=== PATIENT | female | born 1955 | race Two or more races ===

== ENCOUNTER 2020-12-27 17:48 | Inpatient (IN) | payer OTHER ==
[~2020-12-27] VITALS: Ht 157.5 cm; Wt 77.1 kg
[2020-12-30] MEDS ORDERED: OMEPRAZOLE40 MG (10:57)
[2020-12-30] MEDS ORDERED: CALCIUM 600 MG1 EAC3 (10:59)
[2020-12-30] MEDS ORDERED: CIPROFLOXACIN500 MG (11:00)
[2020-12-30] MEDS ORDERED: NABUMETONE750 MG (11:00)
[2021-01-13] MEDS ORDERED: HYOSCYAMINE0.125 M1 SL (09:08)
[2021-01-13] MEDS ORDERED: INTESTINEX680 M1 PO (09:08)
[2021-01-13] MEDS ORDERED: PROTONIX40 MG PO (09:09)
[2021-01-13] MEDS ORDERED: AMOX1TAB5 PO (09:09)
== END 2021-01-13 10:43 | disposition home or self-care (01) | DRG 392 ==
LOC: ER 17:48 → SURG 23:12
PROVIDERS: ADMIT Surgery; ATTEND Surgery
PROC: 02HV33Z Insertion of Infusion Device into Superior Vena Cava, Percutaneous Approach (ICD-10-PCS; 2020-12-28)
PROC: BW211ZZ Computerized Tomography (CT Scan) of Abdomen and Pelvis using Low Osmolar Contrast (ICD-10-PCS; 2020-12-28)
PROC: BW2110Z Computerized Tomography (CT Scan) of Abdomen and Pelvis using Low Osmolar Contrast, Unenhanced and Enhanced (ICD-10-PCS; 2021-01-01)
PROC: 0W9J30Z Drainage of Pelvic Cavity with Drainage Device, Percutaneous Approach (ICD-10-PCS; principal; 2021-01-04)
DX: K57.20 Diverticulitis of large intestine with perforation and abscess without bleeding (principal)

== ENCOUNTER 2021-03-11 05:55 | Day surgery (SDC) | payer OTHER ==
[~2021-03-11 05:55] MED LIST: AMOX1TAB5 PO; CALCIUM 600 MG1 EAC3; CIPROFLOXACIN500 MG; HYOSCYAMINE0.125 M1 SL; INTESTINEX680 M1 PO; NABUMETONE750 MG; OMEPRAZOLE40 MG; PROTONIX40 MG PO
== END 2021-03-11 10:15 | disposition home or self-care (01) ==
LOC: AMB-ENDOS 05:55
PROVIDERS: ATTEND Surgery
DX: D12.2 Benign neoplasm of ascending colon (principal); D17.5 Benign lipomatous neoplasm of intra-abdominal organs

== ENCOUNTER 2021-05-12 06:20 | Inpatient (IN) | payer OTHER ==
[~2021-05-12] VITALS: Ht 157.5 cm; Wt 72.6 kg
[2021-05-12] MEDS ORDERED: PEPCID AC20 MG (06:29)
[2021-05-12] MEDS ORDERED: GLYCOPYRROLATE2 MG (06:29)
[2021-05-12] MEDS ORDERED: MOXIFLOXACIN HCL1 GM (06:30)
--- NOTE | 2021-05-12 06:36 | NUR ---
SE RECIBE PTE ALERTA Y ORIENTADA POR WALLY. PTE REFIERE PRESENTAR DOLOR EN AREA DEL HIPOGASTRIO DESDE HACE CUATRO OSORIO Y INDICA QUE PADECE DE DIVERTICULITIS.
--- NOTE | 2021-05-12 08:44 | NUR ---
SE ORIENTA A PACIENTE SOBRE TRATAMIENTO ORDENADO POR DR. FALCON, LA MISMA VERBALIZA ENTENDER. SE COLECTAN MUESTRAS DE LABORATORIOS, SE ADMINISTRAN MEDICAMENTOS CORRESPONDIENTES Y SE COLOCA VENOPUNCION PATENTE, PETRA DE EIRTEMA Y EDEMA, SE CONECTA TERAPIA DE IVF'S HACIENDO USO DE MEDIDAS ASEPTICAS CORRESPONDIENTES. SE HACE ENTREGA DE CONTRASTE PARA CT Y SE ORIENTA SOBRE FORMA CORRECTO DE INGERIR. PACIENTE PETRA DE DUDAS AL MOMENTO. PENDIENTE RESULTADOS DE LABORATORIOS.
[2021-05-26] MEDS ORDERED: LEVOFLOXACIN750 MG PO (12:21)
[2021-05-26] MEDS ORDERED: METRONIDAZOLE500 MG PO (12:22)
[2021-05-26] MEDS ORDERED: LEVSIN/SL0.125 MG SL (12:23)
[2021-05-26] MEDS ORDERED: INTESTINEX680 M1 PO (12:24)
== END 2021-05-26 14:12 | disposition home or self-care (01) | DRG 358 ==
LOC: ER 06:20 → SEC-K 15:59 → MEDJ 15:59 → SURG 05-14 13:56
PROVIDERS: ADMIT Surgery; ATTEND Surgery
PROC: BW2110Z Computerized Tomography (CT Scan) of Abdomen and Pelvis using Low Osmolar Contrast, Unenhanced and Enhanced (ICD-10-PCS; 2021-05-12)
PROC: 8E0ZXY6 Isolation (ICD-10-PCS; 2021-05-12)
PROC: 4A12X4Z Monitoring of Cardiac Electrical Activity, External Approach (ICD-10-PCS; 2021-05-13)
PROC: 0W9F30Z Drainage of Abdominal Wall with Drainage Device, Percutaneous Approach (ICD-10-PCS; principal; 2021-05-14)
PROC: BW2110Z Computerized Tomography (CT Scan) of Abdomen and Pelvis using Low Osmolar Contrast, Unenhanced and Enhanced (ICD-10-PCS; 2021-05-19)
PROC: 0W9F30Z Drainage of Abdominal Wall with Drainage Device, Percutaneous Approach (ICD-10-PCS; 2021-05-20)
PROC: 0WPG33Z Removal of Infusion Device from Peritoneal Cavity, Percutaneous Approach (ICD-10-PCS; 2021-05-23)
DX: K65.1 Peritoneal abscess (principal); K57.30 Diverticulosis of large intestine without perforation or abscess without bleeding; D12.2 Benign neoplasm of ascending colon; Z20.822 Contact with and (suspected) exposure to COVID-19

== ENCOUNTER 2021-06-26 10:10 | Inpatient (IN) | payer OTHER ==
[~2021-06-26] VITALS: Ht 157.5 cm; Wt 160.0 kg
[~2021-06-26 10:10] MED LIST changes: +GLYCOPYRROLATE2 MG; +LEVOFLOXACIN750 MG PO; +LEVSIN/SL0.125 MG SL; +METRONIDAZOLE500 MG PO; +MOXIFLOXACIN HCL1 GM; +PEPCID AC20 MG
[2021-06-30] MEDS ORDERED: FAMOTIDINE40 MG (16:09)
[2021-06-30] MEDS ORDERED: GLYCOPYRROLATE2 MG (16:09)
[2021-06-30] MEDS ORDERED: INTESTINEX680 M1 (16:09)
[2021-06-30] MEDS ORDERED: OMEPRAZOLE40 MG (16:09)
[2021-07-03] MEDS ORDERED: HYOSCYAMINE0.125 M1 SL (10:03)
[2021-07-03] MEDS ORDERED: OXYC1TAB9 PO (10:04)
== END 2021-07-03 12:02 | disposition home or self-care (01) | DRG 331 ==
LOC: SURH 06-30 07:00 → O/R 06-30 08:00 → SURH 06-30 10:15
PROVIDERS: ADMIT Surgery; ATTEND Surgery
PROC: 0DBP4ZZ Excision of Rectum, Percutaneous Endoscopic Approach (ICD-10-PCS; 2021-06-30)
PROC: 0DTJ4ZZ Resection of Appendix, Percutaneous Endoscopic Approach (ICD-10-PCS; 2021-06-30)
PROC: 0W9J4ZX Drainage of Pelvic Cavity, Percutaneous Endoscopic Approach, Diagnostic (ICD-10-PCS; 2021-06-30)
PROC: 0DTN4ZZ Resection of Sigmoid Colon, Percutaneous Endoscopic Approach (ICD-10-PCS; principal; 2021-06-30 07:00)
DX: K57.20 Diverticulitis of large intestine with perforation and abscess without bleeding (principal); N73.8 Other specified female pelvic inflammatory diseases; N73.6 Female pelvic peritoneal adhesions (postinfective); R19.4 Change in bowel habit; R10.32 Left lower quadrant pain; D12.2 Benign neoplasm of ascending colon

== ENCOUNTER 2024-06-25 14:13 | Emergency (ER) | payer OTHER ==
[~2024-06-25] VITALS: Ht 157.5 cm; Wt 69.9 kg
[~2024-06-25 14:13] MED LIST changes: +FAMOTIDINE40 MG; +INTESTINEX680 M1; +OXYC1TAB9 PO
[2024-06-25] MEDS ORDERED: FAMOtidine 10 MG/ML (4ML VIAL) IV ONE (16:45)
[2024-06-25] MEDS ORDERED: ONDANSETRON HCL 2 MG/ML VIAL IV ONE (16:45)
[2024-06-25] MEDS ORDERED: 0.9 % SODIUM CHLORIDE 1,000 ML IV ONE (16:45)
[2024-06-25] MEDS ORDERED: BARIUM SULFATE 450 ML ORAL.SUSP PO ONE (17:51)
[2024-06-25 18:27] LABS: HEMATOCRIT 45.2 % (36.0-45.00); HEMOGLOBIN 15.5 g/dL (12.0-15.00); MEAN CELL VOLUME 84.4 fL (80.00-100.00); MEAN CORPUSCULAR HEMOGLOBIN 28.9 pg (27.00-32.0); MEAN CORPUSCULAR HGB CONC 34.2 g/dl (32.0-36.0); PLATELET COUNT 344 K/uL (150-450); RED BLOOD COUNT 5.36 M/uL (4.00-6.00); RED CELL DISTRIBUTION WIDTH 14.7 % (11.5-14.5)
[2024-06-25 18:46] LABS: INR 1.03; PROTHROMBIN TIME 11.2 SECONDS (9.0-11.5)
[2024-06-25 18:53] LABS: BILIRUBIN TOTAL 0.67 mg/dL (0.3-1.2); CALCIUM 9.5 mg/dL (8.5-10.1); CREATININE SERUM 0.75 mg/dL (0.55-1.02); GFR 76.39; GLOBULINA 5.1 G/DL (2.4-3.5); POTASSIUM 3.71 mEq/L (3.5-5.1); TOTAL PROTEIN 9.1 gm/dL (6.4-8.2)
[2024-06-25 19:33] LABS: URINE APPEARANCE Clear; URINE BILIRRUBIN Negative (NEGATIVE); URINE BLOOD Negative; URINE COLOR Yellow; URINE GLUCOSE Negative (NEGATIVE); URINE KETONE 15 (NEGATIVE); URINE LEUKOCYTE Negative; URINE NITRATE Negative; URINE PROTEIN Negative (NEGATIVE); URINE UROBILINOGEN 0.2 E.U./dl
[2024-06-25 19:37] LABS: URINE EPITHELIAL CELLS 3.4 uL (0.0-38.8); URINE RBC 12.2 uL (0.0-20.8); URINE WBC 3.1 uL (0.0-23.2)
[2024-06-25 19:45] LABS: URINE CAST 0.14 uL (0.0-1.40)
[2024-06-25] MEDS ORDERED: ZOFRAN8 MG PO (21:42)
[2024-06-25] MEDS ORDERED: DICY20TA PO (21:42)
[2024-06-25] MEDS ORDERED: PEPCID AC20 MG PO (21:42)
== END 2024-06-25 21:48 | disposition home or self-care (01) ==
LOC: ER 14:13
PROVIDERS: General Practice
DX: K29.70 Gastritis, unspecified, without bleeding (principal); R10.9 Unspecified abdominal pain; Z88.1 Allergy status to other antibiotic agents; Z88.5 Allergy status to narcotic agent
CPT/HCPCS: 36415; 74177; 96365; 96366; 99284; J2405; J3490; J7030; Q9965